=== PATIENT | male | born 1935 ===

== ENCOUNTER → 2020-02-04 19:47 | Outpatient (CLI) | payer MEDICARE ==
[2020-02-04 20:36] LABS: CALCIUM 9.1 mg/dL (8.5-10.1); CARBON DIOXIDE 26.8 mmol/L (21.0-32.0); CREATININE - SERUM 3.4 mg/dL (0.6-1.3); POTASSIUM - SERUM 3.8 mmol/L (3.5-5.1)
== END | disposition home or self-care (01) ==
LOC: D.LABREF 19:47
DX: I25.10 Atherosclerotic heart disease of native coronary artery without angina pectoris (principal)